=== PATIENT | female | born 1985 | race Caucasian/White ===

== ENCOUNTER 2017-08-28 14:37 | Emergency (ER) | payer MEDICAID ==
[~2017-08-28] VITALS: Ht 177.8 cm; Wt 111.4 kg
[2017-08-28] MEDS ORDERED: DOXY100C43 PO (16:40)
[2017-08-28] MEDS ORDERED: ALBU8.5H8 IH (16:40)
[2017-08-28] MEDS ORDERED: BENZ-38 PO (16:40)
[2017-08-28] MEDS ORDERED: PRED20TA PO (16:40)
[2017-08-28 17:46] VITALS: BP 134/80
== END 2017-08-28 17:48 | disposition home or self-care (01) ==
LOC: ER 14:38
DX: J20.9 Acute bronchitis, unspecified (principal); F17.210 Nicotine dependence, cigarettes, uncomplicated; Z79.899 Other long term (current) drug therapy
CPT/HCPCS: 99283